=== PATIENT | female | born 1990 | race Caucasian/White ===

== ENCOUNTER 2020-09-14 08:23 | Outpatient (NON) | payer SELFPAY ==
[2020-09-14 21:57] LABS: SARS-CoV-2 RNA PCR Negative
== END 2020-09-14 08:24 ==
PROVIDERS: Family Provider Pediatrics; PCP Family Medicine; Visit Provider Family Medicine
DX: Z20.822 Contact with and (suspected) exposure to COVID-19 (principal); R68.89 Other general symptoms and signs
CPT/HCPCS: C9803; U0003; U0005

== ENCOUNTER 2020-12-08 15:24 | Outpatient (CLI) | payer OTHER, SELFPAY | END 2020-12-08 15:25 | disposition home or self-care (01) | LOC: ANHCOVIDVC 15:24 | PROVIDERS: PCP Family Medicine | DX: Z23 Encounter for immunization (principal) | CPT/HCPCS: 0001A; 91300 ==

== ENCOUNTER 2020-12-29 15:17 | Outpatient (CLI) | payer OTHER, SELFPAY | END 2020-12-29 15:18 | disposition home or self-care (01) | LOC: ANHCOVIDVC 15:17 | PROVIDERS: PCP Family Medicine | DX: Z23 Encounter for immunization (principal) | CPT/HCPCS: 0002A; 91300 ==

== ENCOUNTER 2023-05-29 16:29 | Outpatient (CLI) | payer OTHER, SELFPAY ==
[2023-05-29 16:52] VITALS: BP 134/95; PULSE 87
[2023-05-29 17:01] VITALS: BP 152/72; PULSE 82
[2023-05-29 17:16] VITALS: BP 139/69; PULSE 79
[2023-05-29 17:16] LABS: Basophils Percent Auto 0.3 % (0.2-1.2); Eosinophils Absolute Auto 0.1 K/mm3 (0-0.3); Eosinophils Percent Auto 1.2 % (0-4.4); Hematocrit 41.7 % (37.0-47.0); Hemoglobin 13.7 g/dL (12.0-15.0); Immature Granulocyte Absolute 0.04 K/mm3 (0.00-0.031); Immature Granulocyte Percent A 0.4 % (0-0.5); Lymphocytes Absolute Auto 2.74 K/mm3 (0.9-3.2); Lymphocytes Percent Auto 25.3 % (18.3-44.2); Mean Corpuscular HGB Conc 32.9 g/dl (32-36); Mean Corpuscular Hemoglobin 31.1 pg (26-34); Mean Corpuscular Volume 94.8 fl (80-100); Mean Platelet Volume 10.3 fl (7.4-10.4); Monocytes Absolute Auto 0.6 K/mm3 (0.1-0.6); Monocytes Percent Auto 5.4 % (2.6-8.5); Neutrophils Absolute Auto 7.3 K/mm3 (1.3-6.7); Neutrophils Percent Auto 67.4 % (45.5-73.1); Platelet Count Result 217 k/mm3 (150-375); Red Cell Distribution Width 13.2 % (11.5-14.5); White Blood Count 10.8 K/mm3 (4.5-10.0)
[2023-05-29 17:22] LABS: Appearance Urine Cloudy (Clear); Bacteria Urine Rare /hpf; Bilirubin Urine Negative (Negative); Blood Urine Negative (Negative); Color Urine Yellow (Yellow); Glucose Urine UA Negative (Negative); Ketones Urine 4+ mg/dL (Negative); Leukocyte Esterase Ur Negative LEU/UL (NEGATIVE); Nitrate Urine Negative (Negative); Non Pathogenic Casts 0-2; Protein Urine Negative (Negative); Squamous Epithelial Cell Urine Few /hpf (Few); Urobilinogen Urine 0.2 mg/dL (<2.0); pH Urine 5.5 (5.0-9.0)
[2023-05-29 17:23] LABS: Add Urine Microscopic? YES
[2023-05-29 17:28] LABS: Alanine Aminotransferase 16 U/L (6-35); Albumin Level 3.7 g/dL (3.5-5.1); Alkaline Phosphatase 98 U/L (38-126); Anion Gap 10 mmol/L (8-16); Aspartate Amino Transferase 18 U/L (14-36); Bilirubin,Total 0.5 mg/dL (0.2-1.3); Blood Urea Nitrogen 8 mg/dL (7-17); Calcium 8.8 mg/dL (8.4-10.2); Carbon Dioxide 21 mmol/L (22-30); Chloride 103 mmol/L (98-107); Estimated Glomerular Filt Rate > 60; Glucose 96 mg/dL (65-110); Potassium 3.4 mmol/L (3.4-5.0); Sodium 134 mmol/L (137-145); Uric Acid 2.6 mg/dL (2.5-7.5)
[2023-05-29 17:31] VITALS: BP 134/69; PULSE 91
[2023-05-29 17:38] LABS: Total Protein Urine Random 16 mg/dL; Ur Ttl Prot Creatinine Ratio 0.14 mg/mg (0-0.20)
== END 2023-05-29 17:45 | disposition home or self-care (01) ==
LOC: ANHOBOP 16:36 → ANHLDR 16:37
PROVIDERS: PCP Family Medicine; Visit Provider Obstetrics & Gynecology
DX: O26.893 Other specified pregnancy related conditions, third trimester (principal); R03.0 Elevated blood-pressure reading, without diagnosis of hypertension; Z3A.31 31 weeks gestation of pregnancy
CPT/HCPCS: 36415; 59025; 80053; 81001; 82570; 84156; 84550; 85025; 87086; 87088; 99199

== ENCOUNTER 2023-07-03 17:14 | Outpatient (CLI) | payer OTHER, SELFPAY ==
[2023-07-03 17:37] VITALS: BP 148/95; PULSE 88
[2023-07-03 17:42] LABS: Basophils Percent Auto 0.3 % (0.2-1.2); Eosinophils Absolute Auto 0.1 K/mm3 (0-0.3); Eosinophils Percent Auto 0.9 % (0-4.4); Hematocrit 41.2 % (37.0-47.0); Hemoglobin 13.7 g/dL (12.0-15.0); Immature Granulocyte Absolute 0.03 K/mm3 (0.00-0.031); Immature Granulocyte Percent A 0.3 % (0-0.5); Lymphocytes Absolute Auto 3.03 K/mm3 (0.9-3.2); Lymphocytes Percent Auto 34.4 % (18.3-44.2); Mean Corpuscular HGB Conc 33.3 g/dl (32-36); Mean Corpuscular Hemoglobin 30.2 pg (26-34); Mean Corpuscular Volume 90.9 fl (80-100); Monocytes Absolute Auto 0.7 K/mm3 (0.1-0.6); Monocytes Percent Auto 7.8 % (2.6-8.5); Neutrophils Absolute Auto 4.9 K/mm3 (1.3-6.7); Neutrophils Percent Auto 56.3 % (45.5-73.1); Platelet Count Result 208 k/mm3 (150-375); Red Blood Count 4.53 M/mm3 (4.2-5.4); White Blood Count 8.8 K/mm3 (4.5-10.0)
[2023-07-03 17:46] VITALS: BP 151/96; PULSE 87
[2023-07-03 17:54] LABS: Alanine Aminotransferase 20 U/L (6-35); Albumin Level 3.6 g/dL (3.5-5.1); Alkaline Phosphatase 116 U/L (38-126); Anion Gap 7 mmol/L (8-16); Aspartate Amino Transferase 26 U/L (14-36); Bilirubin,Total 0.3 mg/dL (0.2-1.3); Blood Urea Nitrogen 15 mg/dL (7-17); Calcium 9.3 mg/dL (8.4-10.2); Carbon Dioxide 21 mmol/L (22-30); Chloride 106 mmol/L (98-107); Estimated Glomerular Filt Rate > 60; Glucose 109 mg/dL (65-110); Potassium 3.8 mmol/L (3.4-5.0); Sodium 134 mmol/L (137-145); Uric Acid 3.8 mg/dL (2.5-7.5)
[2023-07-03 18:01] VITALS: BP 148/91; PULSE 78
[2023-07-03 18:32] LABS: Appearance Urine Cloudy (Clear); Bacteria Urine 2+ /hpf; Bilirubin Urine Negative (Negative); Blood Urine Negative (Negative); Color Urine Yellow (Yellow); Glucose Urine UA Trace mg/dL (Negative); Hyaline Casts Urine Present /lpf; Ketones Urine Trace mg/dL (Negative); Leukocyte Esterase Ur Negative LEU/UL (NEGATIVE); Nitrate Urine Negative (Negative); Protein Urine 2+ mg/dL (Negative); RBC Urine 0-2 /hpf (0-2); Squamous Epithelial Cell Urine Moderate /hpf (Few); pH Urine 5.5 (5.0-9.0)
[2023-07-03 18:34] LABS: Add Urine Microscopic? YES; Specific Grav Ur 1.042 (1.001-1.035)
[2023-07-03 18:38] LABS: Creatinine Urine 228.1 mg/dL; Total Protein Urine Random 86 mg/dL; Ur Ttl Prot Creatinine Ratio 0.38 mg/mg (0-0.20)
[2023-07-03 19:00] VITALS: BP 148/91; PULSE 87
--- NOTE | 2023-07-03 19:04 | PC.NURSE ---
talked to Dr. Retana at 1847 orders given to dc this patient. General pre eclampsia information given patient advised to come back if having any symptoms. Patient per Dr. Retana will have a on Saturday at 12 for Breech presentation. no Long acting insulin the night before her
== END 2023-07-03 19:06 | disposition home or self-care (01) ==
LOC: ANHOBOP 17:19 → ANHOBPP 17:20
PROVIDERS: PCP Family Medicine; Visit Provider Obstetrics & Gynecology
DX: O32.1XX0 Maternal care for breech presentation, not applicable or unspecified (principal)
CPT/HCPCS: 36415; 59025; 80053; 81001; 82570; 84156; 84550; 85025; 87086; 87088; 87147; 99199

== ENCOUNTER 2023-07-05 09:31 | Inpatient (IN) | payer OTHER, SELFPAY ==
[2023-07-05] VITALS (68 sets, daily range): BP systolic 114–143; BP diastolic 63–114; PULSE 54–128; RESP 16–20; TEMP 36.7–37.1; O2SAT 92–100; BMI 35.5
--- NOTE | 2023-07-05 10:34 | ADMGEN ---
This patient, Maria R Cruz, was admitted to Labor/Delivery/Recovery 120-00. Patient/family oriented to hospital policies and general routines including ID bracelet, bed and alarms, visiting hours, pain management, procedures, bathroom and other care routines, personal items, smoking policy, room service/diet, and visiting hours. Information on how to activate the Rapid Response Team has been discussed. Patient/Family are encouraged to report perceived risks to care and to ask questions if they do not understand what they are told or what they should do.
[2023-07-05 10:35] LABS: Basophils Percent Auto 0.4 % (0.2-1.2); Eosinophils Absolute Auto 0.1 K/mm3 (0-0.3); Eosinophils Percent Auto 0.8 % (0-4.4); Hematocrit 43.5 % (37.0-47.0); Hemoglobin 14.2 g/dL (12.0-15.0); Immature Granulocyte Absolute 0.03 K/mm3 (0.00-0.031); Immature Granulocyte Percent A 0.3 % (0-0.5); Lymphocytes Absolute Auto 2.58 K/mm3 (0.9-3.2); Lymphocytes Percent Auto 28.2 % (18.3-44.2); Mean Corpuscular HGB Conc 32.6 g/dl (32-36); Mean Corpuscular Hemoglobin 29.9 pg (26-34); Mean Corpuscular Volume 91.6 fl (80-100); Mean Platelet Volume 11.2 fl (7.4-10.4); Monocytes Absolute Auto 0.5 K/mm3 (0.1-0.6); Monocytes Percent Auto 5.8 % (2.6-8.5); Neutrophils Absolute Auto 5.9 K/mm3 (1.3-6.7); Neutrophils Percent Auto 64.5 % (45.5-73.1); Platelet Count Result 194 k/mm3 (150-375); Red Blood Count 4.75 M/mm3 (4.2-5.4); White Blood Count 9.1 K/mm3 (4.5-10.0)
[2023-07-05 10:45] LABS: Alanine Aminotransferase 21 U/L (6-35); Albumin Level 3.5 g/dL (3.5-5.1); Alkaline Phosphatase 129 U/L (38-126); Anion Gap 8 mmol/L (8-16); Aspartate Amino Transferase 27 U/L (14-36); Bilirubin,Total 0.4 mg/dL (0.2-1.3); Blood Urea Nitrogen 13 mg/dL (7-17); Calcium 8.4 mg/dL (8.4-10.2); Carbon Dioxide 22 mmol/L (22-30); Chloride 106 mmol/L (98-107); Estimated CRCL calculation 128 ml/min; Estimated Glomerular Filt Rate > 60; Glucose 84 mg/dL (65-110); Potassium 3.4 mmol/L (3.4-5.0); Sodium 136 mmol/L (137-145)
[2023-07-05] MEDS: LACTATED RINGERS 1,000 ML 125 ML IV CONT ×2 (11:13→12:03)
--- NOTE | 2023-07-05 11:57 | WPDANESEPP ---
Anes - Eval Pre Procedure Procedure: Operation Date: 07/05/23 12:00 Proposed Procedures p Section - Nafisa Retana MD Date/Time: 07/05/23 11:57 Pre Op Diagnosis: C/S Patient Data Age: 32 Gender: F Height: 1.63 m Weight: 94 kg Last Vital Signs Pulse 90 07/05/23 10:00 BP 136/88 07/05/23 10:00 Pulse Ox 98 07/05/23 10:07 O2 Del Method Room Air 07/05/23 10:34 Allergies Allergy/AdvReac Type Severity Reaction Status Date / Time Sulfa (Sulfonamide Allergy Severe Other Verified 07/05/23 10:44 Antibiotics) venom-wasp Allergy Unknown Hives Verified 07/05/23 10:44 Home Medications Medication Instructions Recorded Confirmed Type ondansetron HCl 4 mg tablet 4 mg PO PRN PRN Nausea 12/10/22 07/05/23 History epinephrine 0.3 mg/0.3 mL 0.3 mg subcut PRN 01/07/23 07/05/23 History injection, auto-injector insulin glargine-yfgn 100 unit/mL 10 unit subcut BID 06/05/23 07/05/23 History (3 mL) subcutaneous pen (Semglee (insulin glargine-yfgn) Pen) metformin 500 mg tablet 1,000 mg PO BID 06/19/23 07/05/23 History prenat.vits,romi,ste-muqe-xqgiw 1 tablet PO DAILY 07/04/23 07/05/23 History sumatriptan 1 tab-cap PO DAILY PRN Headache 07/05/23 07/05/23 History Laboratory Tests 07/05/23 10:08 WBC 9.1 K/mm3 (4.5-10.0) RBC 4.75 M/mm3 (4.2-5.4) Hgb 14.2 g/dL (12.0-15.0) Hct 43.5 % (37.0-47.0) MCV 91.6 fl (80-100) MCH 29.9 pg (26-34) MCHC 32.6 g/dl (32-36) RDW 13.0 % (11.5-14.5) Plt Count 194 k/mm3 (150-375) MPV 11.2 H fl (7.4-10.4) Immature Gran % (Auto) 0.3 % (0-0.5) Neut % (Auto) 64.5 % (45.5-73.1) Lymph % (Auto) 28.2 % (18.3-44.2) [place] % (Auto) 5.8 % (2.6-8.5) Eos % (Auto) 0.8 % (0-4.4) Baso % (Auto) 0.4 % (0.2-1.2) Lymph # (Auto) 2.58 K/mm3 (0.9-3.2) [place] # (Auto) 0.5 K/mm3 (0.1-0.6) Eos # (Auto) 0.1 K/mm3 (0-0.3) Baso # (Auto) 0.0 K/mm3 (0.0-0.1) Abs Immat Gran (auto) 0.03 K/mm3 (0.00-0.031) Absolute Neuts (auto) 5.9 K/mm3 (1.3-6.7) Absolute Nucleated RBC 0.0 K/mm3 (0.0-0.012) Nucleated RBC % 0.0 % (0.0-0.2) Sodium 136 L mmol/L (137-145) Potassium 3.4 mmol/L (3.4-5.0) Chloride 106 mmol/L (98-107) Carbon Dioxide 22 mmol/L (22-30) Anion Gap 8 mmol/L (8-16) BUN 13 mg/dL (7-17) Creatinine 0.60 L mg/dL (0.7-1.0) Estim Creat Clear Calc 128 ml/min Estimated GFR > 60 (59 - ) Glucose 84 mg/dL (65-110) Uric Acid 4.0 mg/dL (2.5-7.5) Calcium 8.4 mg/dL (8.4-10.2) Total Bilirubin 0.4 mg/dL (0.2-1.3) AST 27 U/L (14-36) ALT 21 U/L (6-35) Alkaline Phosphatase 129 H U/L (38-126) Total Protein 7.0 g/dL (6.3-8.2) Albumin 3.5 g/dL (3.5-5.1) RPR Pending Blood Type A Positive Antibody Screen Pending Patient hx anesthesia problems: none Family hx anesthesia problems: none Results Review: All pre-operative results and documents have been reviewed as part of the pre-operative evaluation. [facility] Past Medical History Medical History (Updated 07/05/23 @ 11:58 by Yaima Blair CRNA) GDM (gestational diabetes mellitus), class A1 History of hypertension Migraines PCOS (polycystic ovarian syndrome) Pre-eclampsia in third trimester Skin tag of rectum Suppression of menses Surgical History Surgical History H/O eye surgery (~1991) lazer for lazy eye / corrective eye surgery for cross eyes at 6 months of age [place] teeth removed age 13 Family History Family History Mother Hypertension Asthma Family history of diabetes mellitus in first degree relative Father Family history of rheumatoid arthritis Family history of arthritis Sibling Hypertension brother Grandparent Breast cancer
[2023-07-05] MEDS: ceFAZolin 2 GM/D5W 50 ML 2 GM/50 ML BAG IVPB (12:03)
--- NOTE | 2023-07-05 12:03 | PM.IMHP ---
H&P: HPI History of Present Illness Date/Time: 07/05/23 06:51 Chief Complaint: elevated blood pressures; breech presentation Narrative: Maria R is a 32yo @ 37.0wks who presents today for primary due to a new diagnosis of pre-eclamspia (07/03/23) and breech malpresentation. She has been following with MFM and myself very closely due to possible GHTN and A2GDM. She has been undergoing twice weekly ANT. She reports good movement, no ctx, VB or LOF. 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; FOB SMA negative - H/o PCOS; on metformin 1000mg --> BID - A2GDM-- metformin and insulin - Pre-eclampsia w/ p/c of 0.37 - BREECH - GBS positive Review of Systems Constitutional: Constitutional: Denies chills, Denies fever(s) and Denies headache(s) Eyes: Eyes: Denies change in vision ENT: Denies headache(s) Cardiovascular: Cardiovascular: Denies chest pain and Denies dyspnea Respiratory: Respiratory: Denies dyspnea Genitourinary: Genitourinary: Denies abnormal vaginal bleeding and Denies vaginal discharge Neurologic: Denies headache(s) Psychiatric: Psychiatric: Denies anxiety and Denies depression [facility] Past Medical History Medical History History of hypertension Migraines PCOS (polycystic ovarian syndrome) Skin tag of rectum Suppression of menses Surgical History Surgical History H/O eye surgery (~1991) lazer for lazy eye / corrective eye surgery for cross eyes at 6 months of age [place] teeth removed age 13 Family History Family History Mother Hypertension Asthma Family history of diabetes mellitus in first degree relative Father Family history of rheumatoid arthritis Family history of arthritis Sibling Hypertension brother Grandparent Breast cancer Maternal grandmother Social History Social History Smoking status: Never smoker Alcohol intake: never Substance use: never Lack of Transportation: No Lack of Food: Never True Current Housing: I Have Housing Concerned About Future Housing: No Difficulty Paying Gas/Electric Bills: No Difficulty Paying for Meds: No Currently Unemployed: No Education: Bachelor's Degree Difficulty w/ Childcare or Family Care: No Living arrangements: with family Additional living arrangements comments: Occupation/Education: occupation Gender identity (if verbalized by the patient): Female Sexual Orientation (if Verbalized by the Patient): Straight or Heterosexual Spiritual care concerns: No Meds Home Medications and Allergies Home Medications Medication Instructions Recorded Confirmed Type ondansetron HCl 4 mg tablet 4 mg PO PRN PRN Nausea 12/10/22 07/05/23 History epinephrine 0.3 mg/0.3 mL 0.3 mg subcut PRN 01/07/23 07/05/23 History injection, auto-injector insulin glargine-yfgn 100 unit/mL 10 unit subcut BID 06/05/23 07/05/23 History (3 mL) subcutaneous pen (Semglee (insulin glargine-yfgn) Pen) metformin 500 mg tablet 1,000 mg PO BID 06/19/23 07/05/23 History prenat.vits,romi,ecd-gppg-ydhwa 1 tablet PO DAILY 07/04/23 07/05/23 History sumatriptan 1 tab-cap PO DAILY PRN Headache 07/05/23 07/05/23 History Allergies Allergy/AdvReac Type Severity Reaction Status Date / Time Sulfa (Sulfonamide Allergy Severe Other Verified 07/05/23 10:44 Antibiotics) venom-wasp Allergy Unknown Hives Verified 07/05/23 10:44 Exam Const: General: cooperative, comfortable, no acute distress and obese Nutritional Appearance: obese Orientation/consciousness: patient oriented x3 Resp: Effort & Inspection: normal respiratory effort Cardio: Rate: regular rate GI: GI Palp: No ab
--- NOTE | 2023-07-05 12:03 | WPDHPUPDATE1 ---
History and Physical Update Update Date/Time: 07/05/23 12:03 History and Physical has been reviewed, including an updated exam of the patient. There are NO changes in the patient's condition. Risks, benefits, and alternatives have been discussed and questions answered. Patient agrees to proceed with procedure.
--- NOTE | 2023-07-05 12:06 | P.PNAN_ITS ---
Anes - Eval Final PreProcedure Day of Procedure 07/05/23 12:06 Patient weight: obese Heart: regular rate and rhythm Lungs: clear to auscultation Airway: Mallampati scale class II Neurological: alert and oriented Last oral intake: >/= 8 hours ASA classification: III Emergent: no Anesthetic plan: proceed Anesthesia type and monitoring: regional spinal and standard monitoring Other findings: exam per JOSEF Results Review: All pre-operative results and documents have been reviewed as part of the pre- operative evaluation. Informed Consent: The patient's anesthetic plan and its attendant risks and benefits were discussed with the patient/family/POA. Questions were solicited and answers provided to the satisfaction of the patient/family/POA.
--- NOTE | 2023-07-05 13:10 | W.PM.OBCSD ---
OB - Delivery Note Procedure Delivery date: 07/05/23 Pre-op diagnosis: Breech Presentation, Gestational Diabetes and Preeclampsia w/o severe features Post-op Diagnosis: Same Procedure Performed: Primary Primary branch: low cervical, transverse Surgeon: Nafisa Retana MD Anesthesia type: Spinal Description of Procedure/Findings: Baby boy in josie breech position, clear fluid. Normal uterus and bilateral fallopian tubes and ovaries. Estimated Blood Loss: 315 Pathology: Yes (placenta) Complications: No immediate complications Condition: Stable Disposition: Floor Baby Date of : 07/05/23 Time of : 12:33 Weeks of gestation at delivery: 37 Infant gender: Male Weight (pounds): 5 Weight (ounces): 12 presentation: josie breech Placenta delivery description: Expressed Cord Vessel Description: 3 Vessels score one minute: 9 score five minutes: 9 Narrative: She was counseled on all risks and benefits in detail. She was taken to the operating room where spinal was placed. She was then prepped and draped in the normal sterile fashion. She received 2g Ancef and a time out was performed. A Pfannenstiel incision was made in the skin and carried down to the underlying fascia. The fascia was nicked on either side of the midline and the fascial incision was extended laterally and superiorly using curved Pina scissors. The fascia was then elevated using William clamps and the underlying rectus muscles were dissected off the fascia, superiorly and inferiorly. The rectus muscles were then in the midline and the peritoneum was entered bluntly. Once adequate exposure was obtained, a Mobius self retractor was placed within the abdomen. A bladder flap was created. A low transverse incision was made on the lower uterine segment and clear fluid was noted. The buttocks were brought to the hysterotomy and the fetus was easily delivered doing normal breech maneuvers. The had spontaneous cry and the mouth and nose were bulb suctioned. The cord was clamped and cut and the was handed off to the awaiting pediatric nurse. A segment of the cord was collected for cord gases. The remaining cord blood was collected for typing. With pitocin infusing, the placenta delivered with gentle traction on the cord without complications. The uterus was then cleared out of all clots and debris using a clean, moist lap. The hysterotomy was then repaired in a running, interlocking fashion using 0 Vicryl. A second layer imbricating suture was then made using 0 Vicryl. The hysterotomy was found to be hemostatic and good uterine tone was noted. The bilateral adnexa were examined and found to be normal. The pelvis was cleared of all clots and fluid. The Mobius retractor was removed from the abdomen. The peritoneum, muscle, and fascia were examined and made hemostatic with bovie cautery. The fascia was then repaired using a 0 Vicryl suture in a running fashion. The subcutaneous tissue was then irrigated and made hemostatic with bovie cautery. The subcutaneous tissue was then reapproximated using 3-0 Vicryl. The skin was then closed using 4-0 Monocryl in a running subcuticular fashion. Sponge, lap, needle and instrument counts were correct at the end of the procedure x2. The patient tolerated the procedure well and was taken to recovery in a stable condition. [facility] Delivery Billing Delivery Delivery: Delivery Charge
[2023-07-05] MEDS: OXYTOCIN 30 UNITS/NS 500 ML 30 UNITS/500 ML BAG 125 UNITS IV CONT (15:03)
--- NOTE | 2023-07-05 15:16 | PC.NURSE ---
heart tones audible in OR prior to section. FHR baseline 145.
[2023-07-05 15:29] LABS: Rapid Plasma Reagin Non-Reactive (NonReactive)
--- NOTE | 2023-07-05 15:40 | PC.NURSE ---
Patient transferred to post room #286 via stretcher. Support person present. Oriented to unit, room, information board, rooming in, admission packet and security measures. Patient verbalizes understanding.
[2023-07-05] MEDS: IBUPROFEN 600 MG TABLET PO (20:16)
[2023-07-05] MEDS: DOCUSATE SODIUM 100 MG CAPSULE PO (20:16)
[2023-07-06] VITALS: BP 120/65
[2023-07-06 04:00] VITALS: BP 128/74
[2023-07-06] MEDS: IBUPROFEN 600 MG TABLET PO ×3 (04:19→16:21)
[2023-07-06 05:29] LABS: Basophils Percent Auto 0.2 % (0.2-1.2); Eosinophils Absolute Auto 0.1 K/mm3 (0-0.3); Eosinophils Percent Auto 0.7 % (0-4.4); Hematocrit 35.4 % (37.0-47.0); Hemoglobin 11.8 g/dL (12.0-15.0); Immature Granulocyte Absolute 0.04 K/mm3 (0.00-0.031); Immature Granulocyte Percent A 0.3 % (0-0.5); Lymphocytes Absolute Auto 2.63 K/mm3 (0.9-3.2); Lymphocytes Percent Auto 21.3 % (18.3-44.2); Mean Corpuscular HGB Conc 33.3 g/dl (32-36); Mean Corpuscular Hemoglobin 30.5 pg (26-34); Mean Corpuscular Volume 91.5 fl (80-100); Mean Platelet Volume 11.4 fl (7.4-10.4); Monocytes Absolute Auto 0.9 K/mm3 (0.1-0.6); Neutrophils Absolute Auto 8.7 K/mm3 (1.3-6.7); Neutrophils Percent Auto 70.5 % (45.5-73.1); Platelet Count Result 167 k/mm3 (150-375); Red Blood Count 3.87 M/mm3 (4.2-5.4); Red Cell Distribution Width 12.9 % (11.5-14.5); White Blood Count 12.4 K/mm3 (4.5-10.0)
[2023-07-06 07:45] VITALS: BP 130/87; PULSE 77; RESP 16; TEMP 37; O2SAT 99
--- NOTE | 2023-07-06 08:20 | PM.OBPNVD ---
OB - PN: Subj Subjective Date/time seen: 07/06/23 08:20 Narrative: POD#1 Maria R reports doing well today. 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 Her pain is controlled. She is tolerating regular diet, voiding, passing gas, and ambulating without issues. She denies any issues with her incision. She is breast feeding. She would like her son circumcised. OB - PN: Obj Data Labs 07/06/23 04:23 07/05/23 10:08 Labs: Laboratory Results - last 24 hr 07/05/23 07/06/23 10:08 04:23 WBC 9.1 12.4 H RBC 4.75 3.87 L Hgb 14.2 11.8 L Hct 43.5 35.4 L MCV 91.6 91.5 MCH 29.9 30.5 MCHC 32.6 33.3 RDW 13.0 12.9 Plt Count 194 167 MPV 11.2 H 11.4 H Immature Gran % (Auto) 0.3 0.3 Neut % (Auto) 64.5 70.5 Lymph % (Auto) 28.2 21.3 [place] % (Auto) 5.8 7.0 Eos % (Auto) 0.8 0.7 Baso % (Auto) 0.4 0.2 Lymph # (Auto) 2.58 2.63 [place] # (Auto) 0.5 0.9 H Eos # (Auto) 0.1 0.1 Baso # (Auto) 0.0 0.0 Abs Immat Gran (auto) 0.03 0.04 H Absolute Neuts (auto) 5.9 8.7 H Absolute Nucleated RBC 0.0 0.0 Nucleated RBC % 0.0 0.0 Sodium 136 L Potassium 3.4 Chloride 106 Carbon Dioxide 22 Anion Gap 8 BUN 13 Creatinine 0.60 L Estim Creat Clear Calc 128 Estimated GFR > 60 Glucose 84 Uric Acid 4.0 Calcium 8.4 Total Bilirubin 0.4 AST 27 ALT 21 Alkaline Phosphatase 129 H Total Protein 7.0 Albumin 3.5 RPR Non-reactive Blood Type A Positive Antibody Screen Negative OB - PN A/P Assessment and Plan (1) S/P primary low transverse : Code(s): Z98.891 - History of uterine scar from previous surgery Status: Acute Plan day: 1 Plan: routine care Time Spent With Patient Time: Total time spent is greater than 50% in coordination of care (as documented) at patient's floor/unit and/or counseling patient: Review of Systems Constitutional: Constitutional: Denies chills, Denies fever(s) and Denies headache(s) Eyes: Eyes: Denies change in vision ENT: Denies dizziness and Denies headache(s) Cardiovascular: Cardiovascular: Denies chest pain, Denies palpitations and Denies dyspnea Respiratory: Respiratory: Denies cough and Denies dyspnea Gastrointestinal: Gastrointestinal: Denies nausea and Denies vomiting Genitourinary: Comments: normal bleeding Neurologic: Denies dizziness and Denies headache(s) Endocrine: Endocrine: Denies palpitations Exam Const: General: cooperative, comfortable and no acute distress Orientation/consciousness: patient oriented x3 Resp: Effort & Inspection: normal respiratory effort Auscultation: clear to auscultation bilaterally Cardio: Rate: regular rate GI: Inspection: non-distended and incision (covered with clean dressing) GI Palp: Yes abdominal tenderness (appropriate) and Yes Soft to palpation Auscultation: normal bowel sounds : Other: fundus firm Skin: General skin exam: normal color Neuro: General: patient oriented x3 Extrem: General: normal to inspection Psych: Appearance: grossly normal Affect: normal affect Attitude: cooperative
[2023-07-06] MEDS: MULTIVIT/MIN/PREN/FOL AC/IRON TABLET 1 TAB PO (10:04)
[2023-07-06] MEDS: DOCUSATE SODIUM 100 MG CAPSULE PO ×2 (10:04→16:21)
[2023-07-06 11:30] VITALS: BP 137/73; PULSE 89
--- NOTE | 2023-07-06 12:44 | P.PNAN_ITS ---
Anes - Prog Note Post-Op Date/Time: 07/06/23 12:44 Cardiovascular status: normal Respiratory status: normal Airway patency: baseline Mental status: baseline Post-Op hydration status: normal Vital Signs: Last Vital Signs Temp 37.0 C 07/06/23 07:45 Pulse 89 07/06/23 11:30 Resp 16 07/06/23 07:45 BP 137/73 07/06/23 11:30 Pulse Ox 99 07/06/23 07:45 O2 Del Method Room Air 07/06/23 07:45 Pain Score (VAS): 10/05 I/O: Intake & Output 07/05/23 07/06/23 07/06/23 23:59 07:59 15:59 Intake Total 0 1625 500 Output Total 300 1800 500 Balance -300 -175 0 Laboratory Tests 07/06/23 04:23 07/05/23 10:08 07/05/23 07/06/23 10:08 04:23 WBC 12.4 H RBC 3.87 L Hgb 11.8 L Hct 35.4 L MCV 91.5 MCH 30.5 MCHC 33.3 RDW 12.9 Plt Count 167 MPV 11.4 H Immature Gran % (Auto) 0.3 Neut % (Auto) 70.5 Lymph % (Auto) 21.3 [place] % (Auto) 7.0 Eos % (Auto) 0.7 Baso % (Auto) 0.2 Lymph # (Auto) 2.63 [place] # (Auto) 0.9 H Eos # (Auto) 0.1 Baso # (Auto) 0.0 Abs Immat Gran (auto) 0.04 H Absolute Neuts (auto) 8.7 H Absolute Nucleated RBC 0.0 Nucleated RBC % 0.0 RPR Non-reactive Post-procedural complaints: pruritis Patient Feedback: Patient satisfied with anesthetic care.
--- NOTE | 2023-07-06 12:45 | WPDANLDNPN2 ---
Anes-Prog Note L&D-Neuraxial Date/Time: 07/06/23 12:45 Neuraxial medications: intrathecal PF morphine Opiod-related complaints: pruritis Patient feedback: Patient satisfied with post-operative pain management.
[2023-07-06 16:10] VITALS: BP 123/67; PULSE 78
[2023-07-06] MEDS: ACETAMINOPHEN 325 MG TABLET 650 MG PO (16:21)
[2023-07-06 20:00] VITALS: BP 122/66; PULSE 73; RESP 18; TEMP 36.6; O2SAT 97
[2023-07-06] MEDS: HYDROcodone/acetaminophen (*CRX) 5-325 MG TABLET 1 TAB PO (21:19)
[2023-07-07 01:00] VITALS: BP 128/78; PULSE 76; RESP 16; TEMP 36.6; O2SAT 99
[2023-07-07] MEDS: HYDROcodone/acetaminophen (*CRX) 5-325 MG TABLET 1 TAB PO ×2 (02:30→16:17)
[2023-07-07] MEDS: IBUPROFEN 600 MG TABLET PO ×3 (02:30→16:17)
[2023-07-07] MEDS: SIMETHICONE 80 MG TAB.CHEW PO ×3 (02:30→16:16)
[2023-07-07 07:00] VITALS: BP 140/81; PULSE 95; RESP 16; TEMP 37.1; O2SAT 96
[2023-07-07] MEDS: DOCUSATE SODIUM 100 MG CAPSULE PO ×2 (08:14→16:16)
[2023-07-07] MEDS: MULTIVIT/MIN/PREN/FOL AC/IRON TABLET 1 TAB PO (08:14)
--- NOTE | 2023-07-07 09:20 | PM.OBPNVD ---
OB - PN: Subj Subjective Date/time seen: 07/07/23 09:20 Narrative: POD#2 Maria R reports doing well today. 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 Her pain is controlled. She is tolerating regular diet, voiding, passing gas, and ambulating without issues. She denies any issues with her incision. She is breast feeding/pumping/supplementing. OB - PN: Obj Data Labs 07/06/23 04:23 07/05/23 10:08 OB - PN A/P Assessment and Plan (1) S/P primary low transverse : Code(s): Z98.891 - History of uterine scar from previous surgery Status: Acute Plan day: 2 Plan: routine care and discharge home (tomorrow) Time Spent With Patient Time: Total time spent is greater than 50% in coordination of care (as documented) at patient's floor/unit and/or counseling patient: Review of Systems Constitutional: Constitutional: Denies chills, Denies fever(s) and Denies headache(s) Eyes: Eyes: Denies change in vision ENT: Denies dizziness and Denies headache(s) Cardiovascular: Cardiovascular: Denies chest pain, Denies palpitations and Denies dyspnea Respiratory: Respiratory: Denies cough and Denies dyspnea Gastrointestinal: Gastrointestinal: Denies nausea and Denies vomiting Genitourinary: Comments: normal bleeding Neurologic: Denies dizziness and Denies headache(s) Endocrine: Endocrine: Denies palpitations Exam Const: General: cooperative, comfortable and no acute distress Orientation/consciousness: patient oriented x3 Resp: Effort & Inspection: normal respiratory effort Auscultation: clear to auscultation bilaterally Cardio: Rate: regular rate GI: Inspection: non-distended and incision (covered with clean dressing) GI Palp: Yes abdominal tenderness (appropriate) and Yes Soft to palpation Auscultation: normal bowel sounds : Other: fundus firm Skin: General skin exam: normal color Neuro: General: patient oriented x3 Extrem: General: normal to inspection Psych: Appearance: grossly normal Affect: normal affect Attitude: cooperative
[2023-07-07 12:40] VITALS: BP 140/89; PULSE 85
[2023-07-07 16:10] VITALS: BP 128/79; PULSE 89
[2023-07-07] MEDS: polyethylene glycoL 3350 17 GM POWD.PACK PO (16:54)
[2023-07-07 19:40] VITALS: BP 128/72; PULSE 80; RESP 16; TEMP 37.1; O2SAT 99
[2023-07-08 00:05] VITALS: BP 133/97; PULSE 82; RESP 18; TEMP 36.8; O2SAT 99
[2023-07-08] MEDS: IBUPROFEN 600 MG TABLET PO (03:15)
[2023-07-08] MEDS: HYDROcodone/acetaminophen (*CRX) 5-325 MG TABLET 1 TAB PO ×2 (03:16→08:39)
[2023-07-08 05:25] VITALS: BP 146/87
--- NOTE | 2023-07-08 07:44 | PM.OBDSVD ---
DS: Admitting Diagnosis Discharge Date 07/08/23 Admitting Diagnosis Breech malpresentation Pre-eclampsia A2GDM DS: Discharge Diagnosis Discharge Diagnosis (1) S/P primary low transverse : Code(s): Z98.891 - History of uterine scar from previous surgery Status: Acute (2) Breech presentation: Qualifiers: Fetus number: single or unspecified fetus Qualified Code(s): O32.1XX0 - Maternal care for breech presentation, not applicable or unspecified Code(s): O32.1XX0 - Maternal care for breech presentation, not applicable or unspecified Status: Acute (3) Pre-eclampsia: Qualifiers: Trimester: third trimester Qualified Code(s): O14.93 - Unspecified pre-eclampsia, third trimester Code(s): O14.90 - Unspecified pre-eclampsia, unspecified trimester Status: Acute (4) Gestational diabetes requiring insulin: Code(s): O24.414 - Gestational diabetes mellitus in , insulin controlled Status: Acute OB - DS: Summary OB Procedures : NST, PIH Mgmt and Ultrasound OB Procedures Intrapartum: low cervical, transverse OB Procedures: : None Peripartum Data Infant Delivery Method: Section Procedures: Procedures Operation Date: 07/05/23 12:00 Actual Procedure Side Surgeon p Section Nafisa Retana MD complications: none [place] 1: Gender: Male Disposition of : home Status at Discharge Functional status at discharge: independent ambulation Overall status at discharge: patient is back to baseline Time Spent with Patient Time attestation: Total time spent providing and/or coordinating discharge services: Exam Const: General: cooperative, comfortable, no acute distress and obese Orientation/consciousness: patient oriented x3 Resp: Effort & Inspection: normal respiratory effort Auscultation: clear to auscultation bilaterally Cardio: Rate: regular rate GI: Inspection: non-distended and incision (covered with clean mepilex dressing) GI Palp: No abdominal tenderness and Yes Soft to palpation Auscultation: normal bowel sounds : Other: fundus firm Skin: General skin exam: normal color Neuro: General: patient oriented x3 Extrem: General: normal to inspection Psych: Appearance: grossly normal Affect: normal affect Attitude: cooperative DS: Data Data Completed and Pending Pending studies at discharge: Pending at discharge 11/10/23 13:46 Surgical [PTH] Routine Discharge Plan Discharge Attending physician on discharge: Nafisa Retana Discharging Clinician: Nafisa Retana Anticipated Discharge Date/Time: 07/08/23 10:00 Patient Disposition: Home, Self-Care Activity: may shower, may drive after 2 weeks and pelvic rest Diet: regular Discharge Instructions: Remove dressing on 07/12/23. Patient Instructions: Antibiotic Form Stand Alone Forms: General Discharge Information Follow-up/Referrals: Nafisa Retana MD [Physician] - 2 Weeks (BP/incision check) Discharge Medications: New hydrocodone-acetaminophen 5-325 mg Tablet 1 tablet PO Q3H PRN (Reason: Moderate Pain (4-6)) Qty: 24 0RF docusate sodium 100 mg Capsule 100 mg PO BID Qty: 120 0RF ibuprofen 600 mg Tablet 600 mg PO Q6H PRN (Reason: Cramping) Qty: 40 0RF acetaminophen 500 mg tablet 1,000 mg PO TID Qty: 60 0RF Continued epinephrine 0.3 mg/0.3 mL auto-injector 0.3 mg subcut PRN #2 Tablet 1 tablet PO DAILY sumatriptan 1 tab-cap PO DAILY PRN (Reason: Headache) Discontinued insulin glargine-yfgn [Semglee(insulin glarg-yfgn)Pen] 100 unit/mL (3 mL) insulin pen 10 unit subcut BID metformin 500 mg tablet 1,000 mg PO BID ondansetron HCl 4 mg tablet 4 mg PO PRN PRN (Reason: Nausea) Date of admission: 07/05/23 09:31 Primary Care Provider: Vilma Bloomitting P
[2023-07-08 08:05] VITALS: BP 142/81; PULSE 74; RESP 18; TEMP 36.6; O2SAT 100
[2023-07-08] MEDS: polyethylene glycoL 3350 17 GM POWD.PACK PO (08:39)
[2023-07-08] MEDS: MULTIVIT/MIN/PREN/FOL AC/IRON TABLET 1 TAB PO (08:39)
[2023-07-08] MEDS: SIMETHICONE 80 MG TAB.CHEW PO (08:39)
[2023-07-08] MEDS: DOCUSATE SODIUM 100 MG CAPSULE PO (08:39)
[2023-07-08 12:05] VITALS: BP 126/75; PULSE 77; RESP 16; TEMP 36.9; O2SAT 97
--- NOTE | 2023-07-08 13:30 | PC.NURSE ---
[id number] Introductions were made, then consulted with patient to assess needs related to . Mother led the conversation with her?plans to feed?her infant, the?experience so far practicing breastfeed, then pumping/bottle feeding infant. We discussed milk production right away since mother has been pumping and is not seeing any milk yet. Primary section Mother with complications of GDM (insulin), GBS + with a late of 37 weeks works well with her infant with encouragement and education. Encouraged understanding of the benefits of skin to skin (demonstrating unwrapping and placing upright on her chest), stimulating with massage touch, changing positions to encourage wakefulness, how to watch for early feeding cues, responsive feeding, feeding on demand (aiming for 8-12 times in 24 hours, about every 2-3 hours), milk production, building/maintaining a milk supply, duration of feeding, signs of adequate intake/output and how to record on the feeding sheet. Reviewed positioning and ear, shoulder, hip alignment, supporting the breast to facilitate a deep latch, asymmetrical latch (off-center), leading with the chin with a big, open, wide gape and body close to mother. Infant latched optimally to the left breast in cross cradle position, however infant doesn't maintain the latch. Infant is placed [id number], feeding cues are visible, then is brought to the right breast using the football positioning. Infant doesn't' maintain latch. breathes with a stuffy nose. Formula milk curdle is wiped from infants nose. Education given to mother of how to visualize suck/swallow ratios and listen for drinking at the breast. Infant was unable to maintain latch. Nipple care reviewed with optimal latch and good positioning. Reminding mother of comfort measures of healing with a warm and wet washcloth to rinse breast, then leave open to air-dry as needed. Reviewed good handwashing when or touching the breast/nipples to prevent infection. Reviewed paced bottle feeding and protecting the milk supply with the parents. Measured mother for flange fitting and recommends 19mm and mother has been using 21mm. Recommended to mother to obtain an electric pump to build her milk supply rather than the portable one she has at home. Resources used to facilitate learning were used with the visual handouts, tool, mom and baby guide. Parents voiced understanding of skin to skin, stimulating with massage touch, responsive feedings, hand expressed colostrum, talking to infant to encourage if it has been 2 -2.5 hours since the start of the last , to call if infant does not latch, or if there is discomfort with . Resources provided for inpatient/outpatient with community resources, feeding sheet and the mom/baby guide. Parents voiced understanding of information, demonstrated learning and will call if there is a request for assistance. Reported to the Primary RN.
[2023-07-10 14:40] VITALS: BP 138/90; PULSE 73; RESP 18; TEMP 36.7; O2SAT 100
== END 2023-07-08 12:36 | disposition home or self-care (01) | DRG 788 ==
LOC: ANHLDR 09:36 → ANHOB2 15:40
PROVIDERS: Admitting Provider Obstetrics & Gynecology; PCP Family Medicine; Visit Provider Obstetrics & Gynecology
PROC: 10D00Z1 Extraction of Products of Conception, Low, Open Approach (ICD-10-PCS; CPT 59514; principal; 2023-07-05 12:00)
DX: O14.04 Mild to moderate pre-eclampsia, complicating childbirth (principal); Z37.0 Single live birth; Z3A.37 37 weeks gestation of pregnancy; O32.1XX0 Maternal care for breech presentation, not applicable or unspecified; O24.429 Gestational diabetes mellitus in childbirth, unspecified control; O99.824 Streptococcus B carrier state complicating childbirth
CPT/HCPCS: 36415; 59025; 80053; 81001; 82570; 84156; 84550; 85025; 86592; 86850; 86900; 86901; 87086; 87088; 87147; 88307; 99199; A9270; J0690; J2274; J2405; J2590; J7120